=== PATIENT | female | born 1990 | race Caucasian/White ===

== ENCOUNTER 2017-10-26 09:14 | Emergency (ER) | payer SELFPAY ==
[~2017-10-26] VITALS: Ht 162.6 cm; Wt 68.0 kg
[2017-10-26 09:37] VITALS: BP 110/68
[2017-10-26] MEDS ORDERED: MIRTAZAPINE15 MG ORAL (09:41)
[2017-10-26] MEDS ORDERED: REMERON45 MG ORAL (09:41)
[2017-10-26] MEDS ORDERED: GABAPENTIN600 MG ORAL (09:41)
[2017-10-26] MEDS ORDERED: CATAPRES0.1 MG ORAL (09:41)
[2017-10-26] MEDS ORDERED: DICYCLOMINE HCL20 M1 PO (09:41)
[2017-10-26] MEDS ORDERED: METHOCARBAMOL750 MG ORAL (09:41)
[2017-10-26] MEDS ORDERED: IBUPROFEN600 M1 PO (09:41)
[2017-10-26] MEDS ORDERED: LAMICTAL25 MG ORAL (09:41)
[2017-10-26] MEDS ORDERED: HYDROXYZINE PAM25 MG PO (09:41)
[2017-10-26 10:06] LABS: EOSINOPHILS % (AUTO) 1.5 % (0.0-3.0); HEMATOCRIT 42.4 % (37.0-47.0); HEMOGLOBIN 14.8 G/DL (12.0-16.0); LYMPHOCYTES % (AUTO) 23.9 % (20.0-45.0); MEAN CORPUSCULAR VOLUME 87 FL (80-99); MONOCYTES % (AUTO) 4.7 % (1.0-10.0); NEUTROPHILS % (AUTO) 68.9 % (45.0-75.0); PLATELET COUNT 238 K/UL (150-450); RED BLOOD COUNT 4.87 M/UL (4.20-5.40); RED CELL DISTRIBUTION WIDTH 12.1 % (11.6-14.8); WHITE BLOOD COUNT 7.1 K/UL (4.8-10.8)
[2017-10-26 10:07] LABS: APPEARANCE,URINE SLIGHTLY CLOUDY; BILIRUBIN, URINE NEGATIVE (NEGATIVE); GLUCOSE, URINE (UA) NEGATIVE (NEGATIVE); KETONES,URINE 1+ (NEGATIVE); LEUKOCYTE ESTERASE ,URINE 1+ (NEGATIVE); NITRITE,URINE NEGATIVE (NEGATIVE); PH,URINE 5 (4.5-8.0); PROTEIN,URINE 2+ (NEGATIVE); UROBILINOGEN,URINE NORMAL MG/DL (0.0-1.0)
[2017-10-26 10:09] LABS: COLOR,URINE YELLOW
[2017-10-26 10:27] LABS: ANION GAP 8 mmol/L (5-15); BLOOD UREA NITROGEN 16 mg/dL (7-18); CALCIUM 10.1 MG/DL (8.5-10.1); CARBON DIOXIDE 27 MMOL/L (21-32); CHLORIDE 104 MMOL/L (98-107); CREATININE 0.8 MG/DL (0.55-1.30); POTASSIUM 4.2 MMOL/L (3.5-5.1); SODIUM 139 MMOL/L (136-145)
[2017-10-26 10:32] LABS: ALANINE AMINOTRANSFERASE 27 U/L (12-78); ALBUMIN 4.2 G/DL (3.4-5.0); ALBUMIN/GLOBULIN RATIO 1.1 (1.0-2.7); ALKALINE PHOSPHATASE 61 U/L (46-116); ASPARTATE AMINO TRANSFERASE 19 U/L (15-37); BILIRUBIN,TOTAL 0.5 MG/DL (0.2-1.0)
[2017-10-26] MEDS ORDERED: Bacitracin Oint UD TOPIC ONE (10:45)
[2017-10-26 11:30] VITALS: BP 121/70
--- NOTE | 2017-10-26 13:25 | Emergency Room Report ---
History of Present Illness General Chief Complaint: Vomiting Source: Patient Present Illness HPI Patient presents with nausea, vomiting and anxiety. Withdrawal from opiates 3 weeks ago and benzos 2 weeks ago. Was intermittently treated with Suboxone, but nothing recently. Vomiting and epigastric burning today. Loose stools, not diarrhea. Anxiety treated with benadryl. See other meds given now at rehab facility. Abdominal pain is minimal, generalized cramping (along with the epigastric burning) and not radiating. No meds taken. LNMP normal. No dysuria. Denies SI or HI. There is a bump on her L ankle. This has migrated since wearing shoes. No drainage. Not significantly painful. Some suggested possible abscess. No fevers or chills. She believes her tetanus is UTD. Allergies: Coded Allergies: No Known Allergies (Unverified , 10/26/17) Patient History Past Medical History: see triage record Social History: Reports: smoking, drug use Social History Narrative in rehab facility Last Menstrual Period: Unk Now: No Reviewed Nursing Documentation: PMH: Agreed, PSxH: Agreed Review of Systems All Other Systems: negative except mentioned in HPI Physical Exam Vital Signs Date Time Temp Pulse Resp B/P (MAP) Pulse Ox O2 Delivery O2 Flow Rate FiO2 10/26/17 09:27 97.9 87 20 122/83 99 Room Air Sp02 EP Interpretation: reviewed, normal General Appearance: well appearing, no apparent distress, GCS 15, non-toxic Head: normocephalic Eyes: bilateral eye normal inspection, bilateral eye PERRL, bilateral eye EOMI ENT: moist mucus membranes Neck: supple Respiratory: lungs clear, normal breath sounds Cardiovascular #1: regular rate, rhythm Cardiovascular #2: 2+ radial (R) Gastrointestinal: normal inspection, normal bowel sounds, non tender, no mass, non-distended Musculoskeletal: back normal, gait/station normal, normal range of motion Neurologic: alert, oriented x3, grossly normal Psychiatric: mood/affect normal, no suicidal/homicidal ideation Skin: warm/dry, other - < 1 cm soft nodule L ankle, no erythema Medical Decision Making Diagnostic Impression: Primary Impression: Vomiting Qualified Codes: R11.2 - Nausea with vomiting, unspecified Additional Impression: Withdrawal syndrome ER Course Patient with nausea, vomiting, anxiety and loose stools post withdrawing from benzos and opiates. DDx: GItis, GERD, gastritis, pancreatitis, dehydration, anxiety, withdrawal syndrome amongst others. Evaluation with labs. Xrays not indicated. Treatment with IV hydration, zofran, pepcid. Lesion on ankle does not look like abscess - however, will treat with local/topical antibiotics. Labs with normal CBC, CMP, UA. Improved with treatment. Tolerating PO without difficulty. Sleeping. Patient stable for outpatient observation and treatment. Laboratory Tests Test 10/26/17 09:45 White Blood Count 7.1 K/UL (4.8-10.8) Red Blood Count 4.87 M/UL (4.20-5.40) Hemoglobin 14.8 G/DL (12.0-16.0) Hematocrit 42.4 % (37.0-47.0) Mean Corpuscular Volume 87 FL (80-99) Mean Corpuscular Hemoglobin 30.3 PG (27.0-31.0) Mean Corpuscular Hemoglobin Concent 34.9 G/DL (32.0-36.0) Red Cell Distribution Width 12.1 % (11.6-14.8) Platelet Count 238 K/UL (150-450) Mean Platelet Volume 9.3 FL (6.5-10.1) Neutrophils (%) (Auto) 68.9 % (45.0-75.0) Lymphocytes (%) (Auto) 23.9 % (20.0-45.0) Monocytes (%) (Auto) 4.7 % (1.0-10.0) Eosinophils (%) (Auto) 1.5 % (0.0-3.0) Basophils (%) (Auto) 1.0 % (0.0-2.0) Urine Color Yellow Urine Appearance Slightly cloudy Urine pH 5 (4.5-8.0) Urine Specific [place] 1.020 (1.005-1.035) Urine Protein 2+ (NEGATIVE) H Urine Glucose (UA) Negative (NEGATIVE) Urine Ketones 1+ (NEGATIVE) H Urine Occult Blood Negative (NEGATIVE) Urine Nitrite Negative (NEGATIVE) Urine Bilirubin Negative (NEGATIVE) Urine Urobilinogen Normal MG/DL (0.0-1.0) Urine Leukocyte Esterase 1+ (NEGATIVE) H Urine RBC 0-2 /HPF (0 - 2) Urine WBC 2-4 /HPF (0 - 2) Urine Squamous Epithelial Cells Many /LPF (NONE/OCC) H Urine Bacteria Few /HPF (NONE) Urine HCG, Qualitative Negative Sodium Level 139 MMOL/L (136-145) Potassium Level 4.2 MMOL/L (3.5-5.1) Chloride Level 104 MMOL/L (98-107) Carbon Dioxide Level 27 MMOL/L (21-32) Anion Gap 8 mmol/L (5-15) Blood Urea Nitrogen 16 mg/dL (7-18) Creatinine 0.8 MG/DL (0.55-1.30) Estimate Glomerular Filtration Rate > 60 mL/min (>60) Glucose Level 102 MG/DL (74-106) Calcium Level 10.1 MG/DL (8.5-10.1) Total Bilirubin 0.5 MG/DL (0.2-1.0) Aspartate Amino Transferase (AST) 19 U/L (15-37) Alanine Aminotransferase (ALT) 27 U/L (12-78) Alkaline Phosphatase 61 U/L (46-116) Total Protein 8.0 G/DL (6.4-8.2) Albumin 4.2 G/DL (3.4-5.0) Globulin 3.8 g/dL Albumin/Globulin Ratio 1.1 (1.0-2.7) Lipase 155 U/L (73-393) Last Vital Signs Date Time Temp Pulse Resp B/P (MAP) Pulse Ox O2 Delivery O2 Flow Rate FiO2 10/26/17 13:43 98.4 69 20 121/70 100 Room Air Status: improved Disposition: HOME, SELF-CARE - Rehab home Condition: Improved Scripts Bacitracin (Bacitracin) 28.4 Gm Oint...g. 1 APPLIC TOPIC BID, #20 GM Prov: Clint Daniels M.D. 10/26/17 Famotidine (PEPCID) 20 Mg Tablet 20 MG ORAL DAILY, #30 TAB 0 Refills Prov: Clint Daniels M.D. 10/26/17 Hydroxyzine Hcl (HYDROXYZINE HCL) 25 Mg Tablet 25 MG PO TID Y for anxiety, #14 TAB Prov: Clint Daniels M.D. 10/26/17 Acetaminophen (Tylenol) 325 Mg Tablet 650 MG ORAL Q6H Y for Prn Pain/Headache/Temp > 101, #20 TAB 0 Refills Prov: Clint Daniels M.D. 10/26/17 Ondansetron Odt* (ZOFRAN ODT*) 4 Mg Tab.rapdis 4 MG ORAL Q8H Y for Nausea & Vomiting, #12 TAB 1 Refill Prov: Clint Daniels M.D. 10/26/17 Referrals: NOT CHOSEN ADRIANA/,REFERRING (PCP) Clint Daniels M.D. Oct 26, 2017 13:25
[2017-10-26] MEDS ORDERED: BACITRACIN15 GM TOPIC (13:32)
[2017-10-26] MEDS ORDERED: HYDROXYZINE HCL25 M1 PO (13:32)
[2017-10-26] MEDS ORDERED: ZOFRAN ODT4 MG ORAL (13:32)
[2017-10-26] MEDS ORDERED: TYLENOL325 MG ORAL (13:32)
[2017-10-26] MEDS ORDERED: PEPCID20 MG ORAL (13:32)
[2017-10-26 13:42] VITALS: BP 119/64
[2017-10-26 13:43] VITALS: BP 121/70
== END 2017-10-26 13:45 | disposition home or self-care (01) ==
LOC: EMR 09:30
DX: R11.2 Nausea with vomiting, unspecified (principal); F11.23 Opioid dependence with withdrawal; F13.239 Sedative, hypnotic or anxiolytic dependence with withdrawal, unspecified; F41.9 Anxiety disorder, unspecified; R10.84 Generalized abdominal pain; F17.200 Nicotine dependence, unspecified, uncomplicated
CPT/HCPCS: 36415; 80053; 81003; 81025; 83690; 85025; 96361; 96374; 96375; 99284; J2405; S0028